=== PATIENT | female | born 1955 | race Caucasian/White ===

== ENCOUNTER 2019-02-18 07:34 | Emergency (ER) | payer MEDICARE, OTHER ==
[2019-02-18 07:50] VITALS: BP 149/70
[2019-02-18] MEDS ORDERED: Fluorescein Sodium TOPICAL* 1 MG TEST STRIP OPHTHALMIC ONE (07:52)
[2019-02-18] MEDS ORDERED: Tetracaine 0.5% OPTH.SOL 4 ML* 1 DROP BTL BOTH EYES ONE (07:52)
--- NOTE | 2019-02-18 08:03 | UC ---
Eye Complaint HPI - HPI Summary HPI Summary: Ms. Smith accidentally got contacted disinfectant solution in her right eye last night. It hurt immediately and she rinsed her eye with tap water profusely and used a drop of Systain solution that her had. This helped and she was able to sleep all night but her eyes irritated and red this morning. - History of Current Complaint Chief Complaint: UCEye Stated Complaint: EYE COMPLAINT Time Seen by Provider: 02/18/19 07:38 Pain Intensity: 4 - Allergies/Home Medications Allergies/Adverse Reactions: Allergies Allergy/AdvReac Type Severity Reaction Status Date / Time MS Sulfa Drugs [Sulfa Drugs] Allergy Severe Joint Pain Verified 04/27/13 16:30 MS Mupirocin [From Bactroban] Allergy Intermediate Unknown Verified 04/27/13 16: 32 Reaction Details PMH/Surg Hx/FS Hx/Imm Hx Previously Healthy: Yes - Surgical History Surgical History: Yes Surgery Procedure, Year, and Place: hammer toe neuroma right foot - Social History Alcohol Use: Weekly Substance Use Type: None Smoking Status (MU): Never Smoked Tobacco Review of Systems All Other Systems Reviewed And Are Negative: Yes Physical Exam - Summary Physical Exam Summary: She is nontoxic in appearance with stable vitals. Triage Information Reviewed: Yes Appearance: Well-Appearing Vital Signs: Initial Vital Signs Temp 99 F 02/18/19 07:40 Pulse 60 02/18/19 07:40 Resp 16 02/18/19 07:40 BP 149/70 02/18/19 07:40 Pulse Ox 98 02/18/19 07:40 Vital Signs Reviewed: Yes Eyes: Positive: Conjunctiva Inflamed - Her scleral conjunctiva is diffusely irritated looking and erythematous. There is no fluorescein pickup and no foreign body seen. ENT: Positive: Normal ENT inspection Eye Complaint Course/Dx - Course Course Of Treatment: This is a chemical conjunctivitis and I will treat her with for flurbiprofen and Ciprodex. - Differential Dx/Diagnosis Provider Diagnosis: Chemical conjunctivitis of right eye Discharge - Sign-Out/Discharge Documenting (check all that apply): Patient Departure All imaging exams completed and their final reports reviewed: No Studies - Discharge Plan Condition: Stable Disposition: HOME Patient Education Materials: Chemical Eye Ruff (ED) Referrals: Kathryn Aragon MD [Primary Care Provider] - Kenneth Key MD [Medical Doctor] - Additional Instructions: You should expect complete improvement by tomorrow. If her symptoms persist please follow up with Dr. Key. - Billing Disposition and Condition Condition: STABLE Disposition: Home
== END 2019-02-18 08:19 | disposition home or self-care (01) ==
LOC: UCEAST 07:34
DX: H10.211 Acute toxic conjunctivitis, right eye (principal); Z88.2 Allergy status to sulfonamides
CPT/HCPCS: 99212; A9270-GY; G0463

== ENCOUNTER 2019-04-28 18:01 | Emergency (ER) | payer MEDICARE, BC ==
[2019-04-28 18:06] VITALS: BP 144/81
[2019-04-28] MEDS ORDERED: Ibuprofen TAB* 600 MG PO ONE (18:17)
--- NOTE | 2019-04-28 18:20 | UC ---
Knee Pain HPI - HPI Summary HPI Summary: 63 yo woman with hx of osteoarthritis, with direct fall onto her right medial knee when she tripped in the [employer] parking lot trying to pull out a cart today. Immediate pain and could not weight bear. - History of Current Complaint Chief Complaint: UCLowerExtremity Stated Complaint: KNEE INJURY Time Seen by Provider: 04/28/19 18:17 Hx Obtained From: Patient Onset/Duration: Sudden Onset Severity Initially: Severe Severity Currently: Moderate Pain Intensity: 5 Character: Aching Aggravating Factor(s): Movement, Weight Bearing Alleviating Factor(s): Rest, OTC Meds Associated Signs And Symptoms: Positive: Swelling Able to Bear Weight: No - Risk Factors Septic Arthritis Risk Factor: Negative Gout Risk Factor: Negative - Allergies/Home Medications Allergies/Adverse Reactions: Allergies Allergy/AdvReac Type Severity Reaction Status Date / Time mupirocin [From Bactroban] Allergy Unknown Verified 04/28/19 18:06 Reaction Details Sulfa (Sulfonamide Allergy Joint Pain Verified 04/28/19 18:06 Antibiotics) PMH/Surg Hx/FS Hx/Imm Hx Previously Healthy: Yes - spinal stenosis - Surgical History Surgical History: Yes Surgery Procedure, Year, and Place: hammer toe neuroma right foot - Family History Known Family History: Positive: Non-Contributory - Social History Occupation: Retired Lives: With Family Alcohol Use: Occasionally Substance Use Type: None Smoking Status (MU): Never Smoked Tobacco Review of Systems All Other Systems Reviewed And Are Negative: Yes Motor: Positive: Decreased ROM Is Patient Immunocompromised?: No Physical Exam Triage Information Reviewed: Yes Appearance: Well-Appearing, Pain Distress - moderate Vital Signs: Initial Vital Signs Temp 98.1 F 04/28/19 18:02 Pulse 70 04/28/19 18:02 Resp 16 04/28/19 18:02 BP 144/81 04/28/19 18:02 Pulse Ox 100 04/28/19 18:02 ENT: Positive: Normal ENT inspection Respiratory: Positive: Lungs clear, Normal breath sounds Cardiovascular: Positive: RRR, No Murmur Abdomen Description: Positive: Nontender Musculoskeletal Exam: Other - Marked swelling of the right knee joint Musculoskeletal: Positive: ROM Limited @ - severe restriction of motion right knee Neurological Exam: Normal Psychological Exam: Normal Skin Exam: Other - superficial abrasion right knee. Diagnostics - Radiology No standard instances Radiology Interpretation Completed By: ED Physician - medial right tibial plateau fracture with subluxation/mild displacement. Knee Pain Course/Dx - Course Course Of Treatment: knee immobilizer, crutches, pain control. orthopedic referral. - Differential Dx/Diagnosis Differential Diagnosis/HQI/PQRI: Fracture (Closed), Internal Derangement Of Knee Provider Diagnosis: Right medial tibial plateau fracture Discharge ED - Sign-Out/Discharge Documenting (check all that apply): Patient Departure All imaging exams completed and their final reports reviewed: No - Discharge Plan Condition: Stable Disposition: HOME Prescriptions: HYDROcodone/ACETAMIN 5-325 MG* [[place] 5-325 TAB*] 2 tab PO Q6H PRN #30 tab MDD 8 PRN Reason: Pain - Moderate Patient Education Materials: Leg Fracture (ED) Referrals: Kathryn Aragon MD [Primary Care Provider] - Katelyn Villegas MD [Medical Doctor] - Additional Instructions: Keep the knee immobilizer in place and use crutches. Use ibuprofen 600mg every 6 hours as needed for pain in addition to the use of hydrocodone. You can take one hydrocodone or 2--if you take one at a time, you could use additional acetaminophen 325mg. Ice the knee regularly and keep your leg elevated. Call Tuesday morning for a visit to [facility] orthopedics that day. - Billing Disposition and Condition Condition: STABLE Disposition: Home
[2019-04-28] MEDS ORDERED: HYDROcodone/ACETAMIN 5-325 MG* 1 TAB PO ONE ×2 (19:14→20:46)
--- NOTE | 2019-04-29 12:26 | UC ---
- Progress Note Progress Note: Final x-ray report of the right knee reviewed:FINDINGS: There is a joint effusion. The bone mineralization is within normal limits. There is a minimally displaced tibial plateau fracture extending from the lateral tibiofemoral compartment to the medial tibial cortex. Anatomic alignment is maintained. The joint spaces are preserved. IMPRESSION: JOINT EFFUSION WITH MINIMALLY DISPLACED TIBIAL PLATEAU FRACTURE ABOVE. Wet read correct No change in plan, patient to follow-up with orthopedics as advised. Course/Dx - Diagnoses Provider Diagnoses: Right medial tibial plateau fracture Discharge ED - Sign-Out/Discharge Documenting (check all that apply): Post-Discharge Follow Up All imaging exams completed and their final reports reviewed: Yes - Discharge Plan Condition: Stable Disposition: HOME Prescriptions: HYDROcodone/ACETAMIN 5-325 MG* [[place] 5-325 TAB*] 2 tab PO Q6H PRN #30 tab MDD 8 PRN Reason: Pain - Moderate Patient Education Materials: Leg Fracture (ED) Referrals: Kathryn Aragon MD [Primary Care Provider] - Katelyn Villegas MD [Medical Doctor] - Additional Instructions: Keep the knee immobilizer in place and use crutches. Use ibuprofen 600mg every 6 hours as needed for pain in addition to the use of hydrocodone. You can take one hydrocodone or 2--if you take one at a time, you could use additional acetaminophen 325mg. Ice the knee regularly and keep your leg elevated. Call Tuesday for a visit to [facility] orthopedics that day. - Billing Disposition and Condition Condition: STABLE Disposition: Home
== END 2019-04-28 19:53 | disposition home or self-care (01) ==
LOC: UCEAST 18:01
DX: S82.141A Displaced bicondylar fracture of right tibia, initial encounter for closed fracture (principal); W01.0XXA Fall on same level from slipping, tripping and stumbling without subsequent striking against object, initial encounter; Y92.481 Parking lot as the place of occurrence of the external cause; Z88.2 Allergy status to sulfonamides
CPT/HCPCS: 99214; A9270-GY; G0463